=== PATIENT | female | born 1960 | race Hispanic/Latino ===

== ENCOUNTER 2023-01-19 13:02 | Emergency (ER) | payer SELFPAY ==
[2023-01-19] MEDS ORDERED: methylPREDNISolone Sod Succ/PF 125 MG/2 ML VIAL ONE (14:09)
[2023-01-19] MEDS ORDERED: diphenhydrAMINE 50 MG/ML VIAL ONE (14:10)
[2023-01-19] MEDS ORDERED: Metoclopramide HCl 10 MG/2 ML VIAL ONE (14:10)
[2023-01-19 14:21] LABS: #Eosinphils 0.1 10x3/uL (0.0-0.5); #Monocytes 0.4 10x3/uL (0.0-1.1); #Neutrophils 7.6 10x3/uL (1.5-8.4); %Basophils 0.1 % (0.0-2.0); %Eosinophils 1.2 % (0.0-6.0); %Lymphocytes 13.3 % (18.0-47.0); %Monocytes 3.9 % (0.0-10.0); %Neutrophils 81.2 % (40.0-75.0); Hemoglobin 10.8 g/dL (12.0-15.5); Mean Corpuscular HGB CONC 31.6 g/dL (32.0-36.0); Mean Corpuscular Hemoglobin 26.9 pg (27.0-33.0); Mean Corpuscular Volume 85.1 fl (81.6-98.3); Mean Platelet Volume 11.5 fl (7.4-10.4); Platelet Count 224 10x3/uL (150-450); RBC Distribution Width 13.7 % (11.5-14.5); Red Blood Cell (RBC) Count 4.02 10x6/uL (3.90-5.03); White Blood Cell (WBC) Count 9.3 10x3/uL (3.5-10.5)
[2023-01-19 14:36] LABS: ALT (SGPT) 17 U/L (8-55); AST (SGOT) 22 U/L (5-34); Albumin 4.5 g/dL (3.4-4.8); Alkaline Phosphatase 87 U/L (40-110); Anion Gap 19 mmol/L (10-20); BUN (Urea Nitrogen) 13 mg/dL (9.8-20.1); Bilirubin, Total 0.4 mg/dL (0.2-1.2); Calc. Creatinine Clearance 0 mL/min (70-130); Carbon Dioxide 21 mmol/L (23-31); Chloride 102 mmol/L (98-107); Estimated GFR 79; Globulin 3.8 g/dL (2.4-3.5); Glucose 131 mg/dL (80-115); Protein, Total 8.3 g/dL (5.8-8.1); Sodium 138 mmol/L (136-145)
[2023-01-19] MEDS ORDERED: Ketorolac Tromethamine 30 MG/ML VIAL ONE (15:41)
== END 2023-01-19 19:03 | disposition home or self-care (01) ==
LOC: CSHERS 13:02
DX: R51.9 Headache, unspecified (principal); E11.9 Type 2 diabetes mellitus without complications; E78.5 Hyperlipidemia, unspecified; I10 Essential (primary) hypertension; Z79.84 Long term (current) use of oral hypoglycemic drugs; Z79.899 Other long term (current) drug therapy
CPT/HCPCS: 70450; 71045; 72125; 80053; 84484; 85025; 85652; 86140; 93005; 96361; 96365; 96375; J1200; J1885; J2765; J2930